=== PATIENT | female | born 1970 | race Caucasian/White ===

== ENCOUNTER → 2020-01-07 10:14 | Outpatient (CLI) | payer MEDICARE | END | disposition home or self-care (01) | LOC: D.CN 10:00 | PROVIDERS: ATTEND Psychiatry & Neurology Neurology | DX: R40.4 Transient alteration of awareness (principal) ==

== ENCOUNTER → 2020-02-06 09:09 | Outpatient (CLI) | payer MEDICARE ==
[2020-02-06 10:25] LABS: BASOPHILS 0.6 % (0-2); EOSINOPHILS 2.3 % (0-7); HEMATOCRIT 42.3 % (36.0-48.0); HEMOGLOBIN 13.7 g/dL (12-16); IMMATURE GRANULOCYTES 0.2 % (0-5); LYMPHOCYTES 22.6 % (15-50); MCHC 32.4 g/dL (31.0-37.0); MCV 83.4 fL (80.0-100.0); MEAN PLATELET VOLUME 10.1 fL (7.4-10.4); MONOCYTES 5.9 % (2-11); NEUTROPHILS 68.4 % (40-80); PLATELET COUNT 184 10x3/uL (130-400); RBC 5.07 10x6/uL (4.00-5.40); RDW 13.8 % (11.5-14.5); WBC 4.7 10x3/uL (4.8-10.8)
[2020-02-06 10:41] LABS: INR 0.86 (0.85-1.17); PROTIME 11.7 SECONDS (11.6-15.0)
--- NOTE | 2020-02-06 10:47 | NUR ---
PATIENT CONSENTED FOR A LUMBAR PUNCTURE. TIME OUT PERFORMED OUT 1050 BY ELIAS STONE AND DR SHAHID
[2020-02-06 13:27] LABS: GLUCOSE - CSF 57 MG/DL (40-75); PROTEIN - CSF 49 MG/DL (12-60)
[2020-02-06 14:25] LABS: APPEARANCE - CSF COLORLESS; RBC - CSF 0 cmm (0-0)
== END | disposition home or self-care (01) ==
LOC: D.RAD 01-31 10:00 → D.OPS 01-31 10:00
PROVIDERS: ATTEND Psychiatry & Neurology Neurology
DX: G37.9 Demyelinating disease of central nervous system, unspecified (principal)